=== PATIENT | female | born 2000 | race Caucasian/White ===

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

== ENCOUNTER 2019-03-02 19:44 | Emergency (ER) | payer OTHER ==
[~2019-03-02] VITALS: Ht 162.6 cm; Wt 57.6 kg
== END 2019-03-02 21:10 | disposition home or self-care (01) ==
LOC: ER 19:44
DX: T78.49XA Other allergy, initial encounter (principal); R21 Rash and other nonspecific skin eruption

== ENCOUNTER 2019-04-09 13:45 | Outpatient (CLI) | payer OTHER | END 2019-04-09 13:50 | disposition home or self-care (01) | LOC: SONOGRAMA 13:45 | DX: N20.0 Calculus of kidney (principal) ==

== ENCOUNTER 2019-08-18 15:55 | Emergency (ER) | payer OTHER ==
[~2019-08-18] VITALS: Ht 162.6 cm; Wt 61.2 kg
== END 2019-08-18 18:46 | disposition home or self-care (01) ==
LOC: ER 15:55
DX: N20.1 Calculus of ureter (principal); R10.31 Right lower quadrant pain

== ENCOUNTER 2019-09-02 14:16 | Outpatient (CLI) | payer OTHER | END 2019-09-02 14:20 | disposition home or self-care (01) | LOC: RAD 14:16 | DX: S52.521A Torus fracture of lower end of right radius, initial encounter for closed fracture (principal) ==

== ENCOUNTER 2019-09-04 14:32 | Outpatient (CLI) | payer OTHER | END 2019-09-04 14:35 | disposition home or self-care (01) | LOC: RAD 14:32 | DX: M79.641 Pain in right hand (principal); M79.642 Pain in left hand ==

== ENCOUNTER 2019-09-10 15:09 | Outpatient (CLI) | payer OTHER | END 2019-09-10 15:13 | disposition home or self-care (01) | LOC: SONOGRAMA 15:09 | DX: R10.2 Pelvic and perineal pain (principal); N60.11 Diffuse cystic mastopathy of right breast; N60.12 Diffuse cystic mastopathy of left breast; N94.5 Secondary dysmenorrhea; R10.84 Generalized abdominal pain; N83.291 Other ovarian cyst, right side ==

== ENCOUNTER 2019-10-05 18:24 | Emergency (ER) | payer OTHER ==
[~2019-10-05] VITALS: Ht 165.1 cm; Wt 63.5 kg
== END 2019-10-05 23:03 | disposition home or self-care (01) ==
LOC: ER 18:24 → EMR PED 18:24 → ER 19:29
DX: R10.31 Right lower quadrant pain (principal)

== ENCOUNTER 2019-10-07 13:36 | Outpatient (CLI) | payer OTHER | END 2019-10-07 13:44 | disposition home or self-care (01) | LOC: SONOGRAMA 13:36 | DX: N20.1 Calculus of ureter (principal) ==

== ENCOUNTER 2019-10-09 15:41 | Emergency (ER) | payer OTHER ==
[~2019-10-09] VITALS: Ht 165.1 cm; Wt 63.5 kg
[2019-10-09] MEDS ORDERED: ULTRACET PO (20:53)
[2019-10-09] MEDS ORDERED: CIPRO500 MG PO (20:53)
== END 2019-10-09 22:02 | disposition home or self-care (01) ==
LOC: ER 15:41
DX: N20.0 Calculus of kidney (principal)

== ENCOUNTER 2019-10-12 12:28 | Outpatient (CLI) | payer OTHER ==
[~2019-10-12 12:28] MED LIST changes: +CIPRO500 MG PO
== END 2019-10-12 13:30 | disposition home or self-care (01) ==
LOC: TOM 12:28
DX: N20.0 Calculus of kidney (principal)

== ENCOUNTER → 2019-10-12 15:51 | Outpatient (CLI) | payer OTHER | END | disposition home or self-care (01) | LOC: LAB 15:51 | DX: N39.0 Urinary tract infection, site not specified (principal) ==

== ENCOUNTER 2019-12-15 19:37 | Emergency (ER) | payer OTHER ==
[~2019-12-15] VITALS: Ht 165.1 cm; Wt 63.5 kg
== END 2019-12-15 21:23 | disposition home or self-care (01) ==
LOC: ER 19:37
DX: N23 Unspecified renal colic (principal)

== ENCOUNTER 2019-12-17 10:54 | Emergency (ER) | payer OTHER ==
[~2019-12-17] VITALS: Ht 165.1 cm; Wt 63.5 kg
== END 2019-12-17 11:30 | disposition home or self-care (01) ==
LOC: ER 10:54
DX: N23 Unspecified renal colic (principal)

== ENCOUNTER → 2019-12-17 | Outpatient (CLI) | payer OTHER | END | disposition home or self-care (01) | LOC: SONOGRAMA 10:32 | DX: N23 Unspecified renal colic (principal) ==

== ENCOUNTER 2020-01-03 11:31 | Emergency (ER) | payer OTHER ==
[~2020-01-03] VITALS: Ht 165.1 cm; Wt 63.5 kg
[2020-01-03] MEDS ORDERED: HYDROCHLOROTHIA25 MG PO (11:54)
[2020-01-03] MEDS ORDERED: SERTRALINE20 MG/1 ML (11:55)
[2020-01-03] MEDS ORDERED: BUPROPION HCL75 MG PO (11:55)
[2020-01-03] MEDS ORDERED: ASHLYNA 0.15-01 EACH PO (11:55)
== END 2020-01-03 12:01 | disposition home or self-care (01) ==
LOC: ER 11:31
DX: N20.9 Urinary calculus, unspecified (principal)

== ENCOUNTER 2020-01-04 21:37 | Emergency (ER) | payer OTHER ==
[~2020-01-04] VITALS: Ht 170.2 cm; Wt 72.6 kg
[~2020-01-04 21:37] MED LIST changes: +ASHLYNA 0.15-01 EACH PO; +BUPROPION HCL75 MG PO; +HYDROCHLOROTHIA25 MG PO; +SERTRALINE20 MG/1 ML
== END 2020-01-05 00:39 | disposition home or self-care (01) ==
LOC: ER 21:37 → EMR PED 21:38 → ER 21:38 → EMR PED 01-05 00:39
DX: N20.1 Calculus of ureter (principal)

== ENCOUNTER → 2020-01-07 | Outpatient (CLI) | payer OTHER | END | disposition home or self-care (01) | LOC: NUCLEAR 11:05 | DX: N20.0 Calculus of kidney (principal); N13.1 Hydronephrosis with ureteral stricture, not elsewhere classified | CPT/HCPCS: 78708; A9539; J1940 ==

== ENCOUNTER → 2020-01-12 | Outpatient (CLI) | payer OTHER | END | disposition home or self-care (01) | LOC: SONOGRAMA → TOM 10:25 | DX: N20.0 Calculus of kidney (principal); N20.1 Calculus of ureter; N13.5 Crossing vessel and stricture of ureter without hydronephrosis ==

== ENCOUNTER 2020-01-27 20:21 | Emergency (ER) | payer OTHER ==
[~2020-01-27] VITALS: Ht 165.1 cm; Wt 66.7 kg
== END 2020-01-27 22:04 | disposition home or self-care (01) ==
LOC: ER 20:21 → EMR PED 20:22 → ER 20:22 → EMR PED 22:04
DX: R10.84 Generalized abdominal pain (principal); N20.0 Calculus of kidney

== ENCOUNTER 2020-02-22 23:07 | Emergency (ER) | payer OTHER ==
[~2020-02-22] VITALS: Ht 165.1 cm; Wt 66.7 kg
== END 2020-02-23 12:30 | disposition designated cancer center or children's hospital (05) ==
LOC: ER 23:07 → EMR PED 23:08
DX: R11.11 Vomiting without nausea (principal); R53.81 Other malaise; F41.8 Other specified anxiety disorders; F32.89 Other specified depressive episodes; T39.1X4A Poisoning by 4-Aminophenol derivatives, undetermined, initial encounter; T43.594A Poisoning by other antipsychotics and neuroleptics, undetermined, initial encounter; T42.8X4A Poisoning by antiparkinsonism drugs and other central muscle-tone depressants, undetermined, initial encounter; Y92.89 Other specified places as the place of occurrence of the external cause

== ENCOUNTER 2020-03-22 11:58 | Outpatient (CLI) | payer OTHER | END 2020-03-22 12:05 | disposition home or self-care (01) | LOC: RAD 11:58 | PROVIDERS: ATTEND Pediatrics Neonatal-Perinatal Medicine | DX: R10.84 Generalized abdominal pain (principal) ==

== ENCOUNTER 2020-04-29 10:15 | Outpatient (CLI) | payer OTHER | END 2020-04-29 15:44 | disposition home or self-care (01) | LOC: SONOGRAMA 10:15 | PROVIDERS: ATTEND Pediatrics Neonatal-Perinatal Medicine | DX: N93.8 Other specified abnormal uterine and vaginal bleeding (principal); N63.10 Unspecified lump in the right breast, unspecified quadrant; N63.20 Unspecified lump in the left breast, unspecified quadrant ==

== ENCOUNTER 2020-10-04 14:10 | Outpatient (CLI) | payer OTHER | END 2020-10-04 15:07 | disposition home or self-care (01) | LOC: RAD 14:10 | PROVIDERS: ATTEND Emergency Medicine | DX: N28.89 Other specified disorders of kidney and ureter (principal) ==

== ENCOUNTER 2020-10-04 18:39 | Inpatient (IN) | payer OTHER ==
[~2020-10-04] VITALS: Ht 165.1 cm
--- NOTE | 2020-10-04 18:46 | NUR ---
PTE REFIERE DOLOR EN DOLOR ABDOMIAL Y COSTADO SE VIANEY S/V YS EUBIAC EN AREA DE PEDIATRIA
== END 2020-10-06 12:08 | disposition home or self-care (01) | DRG 419 ==
LOC: EMR PED 18:39 → ER 18:39 → EMR PED 19:01 → OB/GYN 19:25
PROVIDERS: Surgery; ADMIT Emergency Medicine Pediatric Emergency Medicine; ATTEND Emergency Medicine Pediatric Emergency Medicine
PROC: 0FT44ZZ Resection of Gallbladder, Percutaneous Endoscopic Approach (ICD-10-PCS; principal; 2020-10-05 10:30)
DX: K80.00 Calculus of gallbladder with acute cholecystitis without obstruction (principal); Z20.822 Contact with and (suspected) exposure to COVID-19

== ENCOUNTER → 2020-10-21 | Outpatient (CLI) | payer OTHER | END | disposition home or self-care (01) | LOC: SONOGRAMA 11:49 | DX: K80.20 Calculus of gallbladder without cholecystitis without obstruction (principal) ==

== ENCOUNTER 2021-11-28 18:43 | Emergency (ER) | payer OTHER ==
[~2021-11-28] VITALS: Ht 165.1 cm; Wt 63.5 kg
== END 2021-11-28 20:14 | disposition home or self-care (01) ==
LOC: EMR PED 18:43 → ER 18:43 → EMR PED 19:29
DX: T78.1XXA Other adverse food reactions, not elsewhere classified, initial encounter (principal); R60.9 Edema, unspecified

== ENCOUNTER 2021-12-21 09:11 | Outpatient (CLI) | payer OTHER | END 2021-12-21 09:25 | disposition home or self-care (01) | LOC: SONOGRAMA 09:11 | PROVIDERS: ATTEND Obstetrics & Gynecology Gynecology | DX: N92.0 Excessive and frequent menstruation with regular cycle (principal); N83.291 Other ovarian cyst, right side; E03.9 Hypothyroidism, unspecified; R10.11 Right upper quadrant pain; R10.12 Left upper quadrant pain ==

== ENCOUNTER 2022-03-30 13:48 | Outpatient (CLI) | payer OTHER | END 2022-03-30 15:17 | disposition home or self-care (01) | LOC: SONOGRAMA 13:48 | PROVIDERS: ATTEND Pediatrics Neonatal-Perinatal Medicine | DX: N60.11 Diffuse cystic mastopathy of right breast (principal); N60.12 Diffuse cystic mastopathy of left breast ==

== ENCOUNTER 2022-07-13 16:51 | Emergency (ER) | payer OTHER ==
[~2022-07-13] VITALS: Ht 162.6 cm; Wt 68.0 kg
== END 2022-07-13 18:37 | disposition home or self-care (01) ==
LOC: ER 16:51
DX: N20.0 Calculus of kidney (principal); Z90.49 Acquired absence of other specified parts of digestive tract; Z88.6 Allergy status to analgesic agent; Z91.010 Allergy to peanuts

== ENCOUNTER 2023-07-02 20:02 | Emergency (ER) | payer OTHER ==
[~2023-07-02] VITALS: Ht 160 cm; Wt 44.5 kg
[2023-07-02 21:11] LABS: HEMATOCRIT 38.7 % (36.0-45.00); HEMOGLOBIN 12.4 g/dL (12.0-15.00); MEAN CELL VOLUME 61.5 fL (80.00-100.00); MEAN CORPUSCULAR HEMOGLOBIN 19.6 pg (27.00-32.0); MEAN CORPUSCULAR HGB CONC 31.9 g/dl (32.0-36.0); PLATELET COUNT 411 K/uL (150-450); RED BLOOD COUNT 6.29 M/uL (4.00-6.00); RED CELL DISTRIBUTION WIDTH 20.1 % (11.5-14.5)
[2023-07-02 21:25] LABS: CALCIUM 9.6 mg/dL (8.5-10.1); CREATININE SERUM 1.21 mg/dL (0.55-1.02); GFR 54.67; POTASSIUM 3.72 mEq/L (3.5-5.1)
[2023-07-02 23:43] LABS: PH,URINE 5.5 (5.0-8.0); URINE APPEARANCE Cloudy; URINE BILIRRUBIN Moderate (NEGATIVE); URINE BLOOD Large; URINE COLOR Dark Yellow; URINE GLUCOSE Negative (NEGATIVE); URINE LEUKOCYTE Small; URINE NITRATE Negative
[2023-07-02 23:46] LABS: URINE BACTERIA 187.7 uL (0.0-1933); URINE RBC 707.5 uL (0.0-20.8); URINE WBC 56.8 uL (0.0-23.2)
[2023-07-02 23:58] LABS: URINE PROTEIN 100 (NEGATIVE)
== END 2023-07-03 01:40 | disposition home or self-care (01) ==
LOC: ER 20:02
PROVIDERS: General Practice
DX: N20.0 Calculus of kidney (principal); N23 Unspecified renal colic; Z88.8 Allergy status to other drugs, medicaments and biological substances; Z91.018 Allergy to other foods

== ENCOUNTER 2023-07-03 14:15 | Emergency (ER) | payer OTHER ==
[~2023-07-03] VITALS: Ht 165.1 cm; Wt 65.3 kg
[2023-07-03 15:30] LABS: HEMOGLOBIN 11.2 g/dL (12.0-15.00); MEAN CORPUSCULAR HEMOGLOBIN 19.3 pg (27.00-32.0); MEAN CORPUSCULAR HGB CONC 31.2 g/dl (32.0-36.0); PLATELET COUNT 341 K/uL (150-450); RED BLOOD COUNT 5.82 M/uL (4.00-6.00); RED CELL DISTRIBUTION WIDTH 20.8 % (11.5-14.5)
[2023-07-03 15:31] LABS: MEAN CELL VOLUME 61.9 fL (80.00-100.00)
[2023-07-03 15:49] LABS: ALBUMIN 3.5 gm/dL (3.4-5.0); BILIRUBIN TOTAL 0.42 mg/dL (0.3-1.2); CALCIUM 8.9 mg/dL (8.5-10.1); CREATININE SERUM 1.16 mg/dL (0.55-1.02); GFR 57.39; GLOBULINA 3.7 G/DL (2.4-3.5); POTASSIUM 3.72 mEq/L (3.5-5.1); TOTAL PROTEIN 7.2 gm/dL (6.4-8.2)
[2023-07-03 16:39] LABS: URINE APPEARANCE Cloudy; URINE BILIRRUBIN Negative (NEGATIVE); URINE BLOOD Large; URINE COLOR Orange; URINE GLUCOSE Negative (NEGATIVE); URINE LEUKOCYTE Moderate; URINE NITRATE Negative; URINE PROTEIN 30 (NEGATIVE)
[2023-07-03 16:42] LABS: URINE BACTERIA 464.9 uL (0.0-1933); URINE EPITHELIAL CELLS 12.3 uL (0.0-38.8); URINE WBC 127.2 uL (0.0-23.2)
== END 2023-07-03 18:06 | disposition home or self-care (01) ==
LOC: ER 14:15
PROVIDERS: General Practice
DX: R10.9 Unspecified abdominal pain (principal); Z88.6 Allergy status to analgesic agent; Z91.018 Allergy to other foods; N20.1 Calculus of ureter; N20.0 Calculus of kidney

== ENCOUNTER 2023-08-28 12:15 | Inpatient (IN) | payer OTHER ==
[~2023-08-28] VITALS: Ht 165.1 cm; Wt 62.6 kg
[~2023-08-28 12:15] MED LIST changes: -LAMOTRIGINE100 MG PO; -LEVO-T50 MCG PO; -PROPRANOLOL HCL20 MG PO; -QUETIAPINE FUM100 MG PO; -SIMPESSE 0.15-1 EACH PO; -SPIRONOLACTONE25 MG PO
[2023-08-28 14:12] LABS: HEMATOCRIT 33.8 % (36.0-45.00); HEMOGLOBIN 10.9 g/dL (12.0-15.00); MEAN CELL VOLUME 65.1 fL (80.00-100.00); MEAN CORPUSCULAR HEMOGLOBIN 20.9 pg (27.00-32.0); MEAN CORPUSCULAR HGB CONC 32.1 g/dl (32.0-36.0); PLATELET COUNT 407 K/uL (150-450); RED CELL DISTRIBUTION WIDTH 21.5 % (11.5-14.5)
[2023-08-28 14:20] LABS: URINE APPEARANCE Cloudy; URINE BILIRRUBIN Negative (NEGATIVE); URINE BLOOD Negative; URINE COLOR Yellow; URINE GLUCOSE Negative (NEGATIVE); URINE LEUKOCYTE Trace; URINE NITRATE Negative; URINE PROTEIN Negative (NEGATIVE)
[2023-08-28] MEDS ORDERED: LAMOTRIGINE100 MG PO (14:20)
[2023-08-28] MEDS ORDERED: PROPRANOLOL HCL20 MG PO (14:21)
[2023-08-28] MEDS ORDERED: QUETIAPINE FUM100 MG PO (14:21)
[2023-08-28] MEDS ORDERED: LEVO-T50 MCG PO (14:22)
[2023-08-28] MEDS ORDERED: SPIRONOLACTONE25 MG PO (14:23)
[2023-08-28] MEDS ORDERED: SIMPESSE 0.15-1 EACH PO (14:23)
[2023-08-28 14:24] LABS: URINE BACTERIA 11.3 uL (0.0-1933); URINE EPITHELIAL CELLS 97.8 uL (0.0-38.8); URINE RBC 16.3 uL (0.0-20.8); URINE WBC 18.6 uL (0.0-23.2)
[2023-08-28 15:02] LABS: ALBUMIN 3.5 gm/dL (3.4-5.0); BILIRUBIN TOTAL 0.23 mg/dL (0.3-1.2); CALCIUM 8.9 mg/dL (8.5-10.1); CREATININE SERUM 0.76 mg/dL (0.55-1.02); GFR 93.5; GLOBULINA 3.4 G/DL (2.4-3.5); POTASSIUM 3.83 mEq/L (3.5-5.1); TOTAL PROTEIN 6.9 gm/dL (6.4-8.2)
[2023-08-28 15:25] LABS: INR 0.99; PARTIAL THROMBOPLASTIN TIME 29.9 SECONDS (22.0-34.0); PROTHROMBIN TIME 10.4 SECONDS (9.0-11.5)
[2023-09-02] MEDS ORDERED: LAMICTAL150 MG (07:46)
[2023-09-02] MEDS ORDERED: SERTRALINE HCL50 MG (07:46)
[2023-09-02 18:46] LABS: HEMATOCRIT 28.1 % (36.0-45.00); MEAN CORPUSCULAR HGB CONC 31.6 g/dl (32.0-36.0); PLATELET COUNT 348 K/uL (150-450); RED BLOOD COUNT 4.23 M/uL (4.00-6.00)
[2023-09-02 18:48] LABS: HEMOGLOBIN 8.9 g/dL (12.0-15.00); MEAN CELL VOLUME 66.3 fL (80.00-100.00)
[2023-09-03 10:57] LABS: MEAN CORPUSCULAR HGB CONC 32.4 g/dl (32.0-36.0); PLATELET COUNT 303 K/uL (150-450); RED BLOOD COUNT 3.93 M/uL (4.00-6.00); RED CELL DISTRIBUTION WIDTH 21.1 % (11.5-14.5)
[2023-09-03 10:59] LABS: MEAN CELL VOLUME 66.1 fL (80.00-100.00); MEAN CORPUSCULAR HEMOGLOBIN 21.3 pg (27.00-32.0)
[2023-09-03 11:00] LABS: HEMOGLOBIN 8.4 g/dL (12.0-15.00)
== END 2023-09-03 13:30 | disposition home or self-care (01) | DRG 743 ==
LOC: OB/GYN 09-02 05:25 → O/R 09-02 05:25 → OB/GYN 09-02 09:58
PROVIDERS: ADMIT General Practice; ATTEND General Practice
PROC: 0UB20ZZ Excision of Bilateral Ovaries, Open Approach (ICD-10-PCS; principal; 2023-09-02 10:30)
DX: D27.1 Benign neoplasm of left ovary (principal); D27.0 Benign neoplasm of right ovary; Z20.822 Contact with and (suspected) exposure to COVID-19

== ENCOUNTER → 2023-08-28 | Outpatient (CLI) | payer OTHER ==
[~2023-08-28] MED LIST changes: +LAMOTRIGINE100 MG PO; +LEVO-T50 MCG PO; +PROPRANOLOL HCL20 MG PO; +QUETIAPINE FUM100 MG PO; +SIMPESSE 0.15-1 EACH PO; +SPIRONOLACTONE25 MG PO
== END | disposition home or self-care (01) ==
LOC: RAD 15:09
PROVIDERS: ATTEND Internal Medicine
DX: Z01.818 Encounter for other preprocedural examination (principal)

== ENCOUNTER 2024-03-05 10:56 | Outpatient (CLI) | payer OTHER ==
[~2024-03-05 10:56] MED LIST changes: +LAMICTAL150 MG; +LAMOTRIGINE100 MG PO; +LEVO-T50 MCG PO; +PROPRANOLOL HCL20 MG PO; +QUETIAPINE FUM100 MG PO; +SERTRALINE HCL50 MG; +SIMPESSE 0.15-1 EACH PO; +SPIRONOLACTONE25 MG PO
== END 2024-03-05 11:00 | disposition home or self-care (01) ==
LOC: SONOGRAMA 10:56
PROVIDERS: ATTEND General Practice
DX: R10.2 Pelvic and perineal pain (principal)

== ENCOUNTER 2024-04-02 18:33 | Emergency (ER) | payer OTHER ==
[~2024-04-02] VITALS: Ht 165.1 cm; Wt 62.6 kg
[2024-04-02] MEDS ORDERED: MORPHINE SULFATE 4 MG/ML VIAL IV ONE ×2 (19:00→23:00)
[2024-04-02] MEDS ORDERED: 0.9 % SODIUM CHLORIDE 1,000 ML IV SCH (19:15)
[2024-04-02] MEDS ORDERED: FAMOTIDINE/PF 20 MG/2 ML VIAL ONE (20:53)
[2024-04-02 23:56] LABS: URINE APPEARANCE Clear; URINE BILIRRUBIN Negative (NEGATIVE); URINE BLOOD Negative; URINE COLOR Yellow; URINE GLUCOSE Negative (NEGATIVE); URINE KETONE Negative (NEGATIVE); URINE LEUKOCYTE Trace; URINE NITRATE Negative; URINE PROTEIN Negative (NEGATIVE); URINE UROBILINOGEN 0.2 E.U./dl
[2024-04-02 23:59] LABS: URINE BACTERIA 1767.7 uL (0.0-1933); URINE EPITHELIAL CELLS 42.6 uL (0.0-38.8); URINE RBC 25.6 uL (0.0-20.8); URINE WBC 38.6 uL (0.0-23.2)
[2024-04-03 00:09] LABS: URINE CAST 0.45 uL (0.0-1.40)
== END 2024-04-02 23:34 | disposition home or self-care (01) ==
LOC: ER 18:33
PROVIDERS: Emergency Medicine
DX: N20.0 Calculus of kidney (principal); Z88.6 Allergy status to analgesic agent; Z88.5 Allergy status to narcotic agent; F41.9 Anxiety disorder, unspecified; I49.9 Cardiac arrhythmia, unspecified

== ENCOUNTER 2024-04-08 12:01 | Outpatient (CLI) | payer OTHER | END 2024-04-08 12:16 | disposition home or self-care (01) | LOC: SONOGRAMA 12:01 | DX: N20.1 Calculus of ureter (principal) ==

== ENCOUNTER → 2024-08-13 | Outpatient (CLI) | payer OTHER | END | disposition home or self-care (01) | LOC: RAD 16:25 | PROVIDERS: ATTEND Pediatrics Neonatal-Perinatal Medicine | DX: M54.50 Low back pain, unspecified (principal) ==

== ENCOUNTER 2024-11-05 11:20 | Outpatient (CLI) | payer OTHER | END 2024-11-05 11:39 | disposition home or self-care (01) | LOC: SONOGRAMA 11:20 | PROVIDERS: ATTEND Pediatrics Neonatal-Perinatal Medicine | DX: R10.2 Pelvic and perineal pain (principal) ==